=== PATIENT | female | born 1975 | race Two or more races ===

== ENCOUNTER 2024-06-11 17:53 | Emergency (ER) | payer MEDICAID, SELFPAY ==
[2024-06-11 17:55] VITALS: BMI 28.9
[2024-06-11 18:29] VITALS: BP 149/85; PULSE 78; RESP 18; TEMP 37.2; O2SAT 97
--- NOTE | 2024-06-11 18:40 | XR_ITS ---
Examination: Knee, left , 3 views Technique: Knee AP, lateral, oblique 3 views Date and time of exam: June 11, 2024 at 1907 hours INDICATIONS: Patient fell today with injury to the knee, knee pain. FINDINGS: Mild osteoarthritis medial patellofemoral joints. No fracture or dislocation. IMPRESSION: No fracture or dislocation.
--- NOTE | 2024-06-11 18:42 | EDNOTE_ITS ---
Lower Extremity Injury RME/HPI General Chief Complaint: Fall Stated Complaint: FALL, CHRISTINA. KNEE. CHRISTINA. HANDS, AND ABD PAIN Time Seen by Provider: 06/11/24 18:39 Arrival date/time: 06/11/24 17:53 49F with no significant PMH presents to ED with L knee pain after trip and fall. Patient also has some ab pain because she had her gallbladder removed 2 weeks ago. But patient did not fall on her stomach and denies N/V and bleeding. Limitations: no limitations Related Data Home Medications ?Medication ?Instructions ?Recorded ?Confirmed Bitter Melon 500 mg PO QDAY 08/19/19 Graviola 1,000 mg PO BID 08/19/19 dicloxacillin 500 mg capsule 500 mg PO Q6H 08/19/19 ibuprofen 600 mg tablet 600 mg PO Q6H PRN Pain 08/1808/19/19 Previous Rx's ?Medication ?Instructions ?Recorded docusate sodium 100 mg capsule 100 mg PO BID #40 caps 08/19/19 (Colace) hydrocodone 5 mg-acetaminophen 325 1 tab PO Q6H PRN pa in #20 tabs 08/19/19 mg tablet (Gleason) Allergies Allergy/AdvReac Type Severity Reaction Status Date / Time No Known Allergies Allergy Verified 06/11/24 17:55 Review of Systems Review of Systems Systems Reviewed: All systems reviewed, normal except as documented Constitutional Constitutional: Reports system reviewed and no additional complaints, except as documented, Denies fever(s) and Denies headache(s) ENT Ears, Nose, Mouth, and Throat: Denies disequilibrium and Denies headache(s) Cardiovascular Cardiovascular: Reports system reviewed and no additional complaints, except as documented, Denies chest pain and Denies dyspnea Respiratory Respiratory: Reports system reviewed and no additional complaints, except as documented, Denies cough and Denies dyspnea Gastrointestinal Gastrointestinal: Reports system reviewed and no additional complaints, except as documented, Reports as per HPI, Reports abdominal pain, Denies nausea and Denies vomiting Musculoskeletal Musculoskeletal: Reports as per HPI and Reports arthralgias Neurologic Neurologic: Reports system reviewed and no additional complaints, except as documented, Denies confusion, Denies disequilibrium and Denies headache(s) Psychiatric Psychiatric: Denies confusion Past Medical History Past Medical History NEUROLOGIC: Negative Neurological Disorders or Seizures CARDIAC: Negative Cardiac Disorders or Congestive Heart Failure RESPIRATORY: Negative Chronic Obstructive Pulmonary Disease (COPD) or Tuberculosis (ppd positive) GASTROINTESTINAL: Positive Gastrointestinal Disorders and Gall Bladder Disease (03/2019) GENITOURINARY: Negative Genitourinary Disorders or Renal Disease REPRODUCTIVE: Positive Previous Pregnancies MUSCULOSKELETAL: Negative Musculoskeletal Disorders ENT: Negative Cataracts, Glaucoma, Blind, Retinal Detachment, Macular Degeneration, Ear Infection, Deafness or Eye Prosthesis ENDOCRINE: Positive Diabetes Mellitus Type 2 (prediabetic); Negative Endocrine Disorders or Diabetes Mellitus Type 1 HEMATOLOGIC: Negative Blood Disorders OTHER HISTORY: Positive Chicken Pox and Measles; Negative Autoimmune Disease, Falls, Blood Transfusions, Blood Transfusion Reaction or Anesthesia Reactions Family History FAMILY HISTORY: Positive Family Surgery; Negative Family Psychiatric Problems, Family Respiratory Disorders, Family Cardiac Disorders, Family Gastrointestinal Problems, Family Cancer or Family Anesthesia Reaction Surgical History SURGICAL: Positive Hysterectomy, Tubal Ligation and Section Social History SMOKING STATUS: Never smoker SECOND HAND EXPOSURE: Yes ED Exam General Limitations: Present no limitations General appearance: Present alert and in no apparent distress Head Head exam: Present atraumatic Eye Eye exam: Present normal appearance, PERRL and EOMI ENT ENT exam: Present normal exam, normal oropharynx and mucous membranes moist Neck Neck exam: Present normal inspection, full ROM and trachea midline Chest Chest inspection: Present normal inspection and symmetric chest wall rise Respiratory Respiratory exam: Present normal lung sounds bilaterally Cardiovascular Cardiovascular exam: Present regular rate, normal rhythm and normal heart sounds Abdominal Exam Abdominal exam: Present soft and normal bowel sounds Extremities Exam Extremities exam: Present full ROM Expanded Lower Extremity Exam Knee exam: Present full ROM (L) and tenderness Back Exam Back exam: Present normal inspection and full ROM Neurological Exam Neurological exam: Present alert, oriented X3 and CN II-XII intact Psychiatric Psychiatric exam: Present normal affect and normal mood Skin Skin exam: Present warm, dry, intact and normal color Course Quality Measures none Orders Category Date Time Status XR knee LT 3V Stat Exams 06/11/24 18:40 Completed Vital Signs Vital signs: Vital Signs Temperature 99 F 06/11/24 18:29 Pulse Rate 78 06/11/24 18:29 Respiratory Rate 18 06/11/24 18:29 Blood Pressure 149/85 H 06/11/24 18:29 Pulse Oximetry (%) 97 06/11/24 18:29 Oxygen Delivery Method Room Air 06/11/24 18:29 O2 at 97% on RA and WNLs Extremity Injury, Lower MDM Narrative MDM Narrative:: 49F with no significant PMH presents to ED with L knee pain after trip and fall. Patient also has some ab pain because she had her gallbladder removed 2 weeks ago. But patient did not fall on her stomach and denies N/V and bleeding. Physical exam reveals L knee tenderness, but normal ROM. Gait intact. No gross ab tenderness. Patient is afebrile, calm, and alert. XR no fx. Creative Resource Manager given. Patient data External records reviewed:: [facility] previous records Clinical information provided by:: patient Social determinants that could affect healthcare access:: none Patient has the following chronic illnesses:: none How is presenting disease/condition affected by chronic disease/condition?: no chronic disease Evaluation data The following diagnostics were reviewed and interpreted by me:: radiology exam(s) Lab and/or radiology exams considered but not ordered:: ordered Interpretation Summary: above Medications / Prescriptions Medications or Prescriptions considered but not ordered:: not ordered Medication administrations:: n/a Consultations Consultation(s) initiated? (list below): No Diagnosis Extremity Injury, Lower Differential Diagnosis: ankle sprain and strain, acute internal derangement of knee, puncture wound of foot, fracture of toe, ankle fracture and other (knee fx) Most likely diagnosis given after review of the tests above:: acute internal derangement of knee Admission Indicated Admission indicated?: not indicated Admission Request Was there a request for admission?: No Disposition Plan Disposition Plan: Discharge Discharge Attestation Discharge Attestation: The patient and all family members were given an opportunity to ask questions and understood the discharge instructions. Discharge instructions specifically effects, indications for sooner follow up or return to the emergency department, and the expected course of current diagnosis. Patient condition: Stable Discharge Plan Plan Patient Disposition: HOME (Self Care) Disposition Comment: Stable Prescriptions/Referrals Prescriptions/Med Rec: No Action dicloxacillin 500 mg Capsule 500 mg PO Q6H ibuprofen 600 mg Tablet 600 mg PO Q6H PRN (Reason: Pain) Bitter Melon 500 mg PO QDAY Graviola 1,000 mg PO BID docusate sodium [Colace] 100 mg capsule 100 mg PO BID Qty: 40 0RF hydrocodone-acetaminophen [Gleason] 5-325 mg tablet 1 tab PO Q6H MDD 4 PRN (Reason: pain) Qty: 20 0RF Referrals: No Primary/Family,Physician [Primary Care Provider] - In 1 week Problem List Clinical Impression: Internal derangement of knee Patient/Caregiver Discharge Instructions Education Materials: How Your Knee Works Additional Instructions: Please follow-up with PCP within 24-48 hours and return immediately if symptoms worsen. If problem persists, recommend outpatient PT and/or MRI follow-up. In the meantime, rest, use ice/heat, and/or compression. 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 Mendiola
== END 2024-06-11 19:57 | disposition home or self-care (01) ==
PROVIDERS: Emergency Provider Emergency Medicine
DX: S83.105A Unspecified dislocation of left knee, initial encounter (principal); W01.0XXA Fall on same level from slipping, tripping and stumbling without subsequent striking against object, initial encounter
CPT/HCPCS: 73562; 99283